=== PATIENT | male | born 1950 | race Caucasian/White ===

== ENCOUNTER 2018-05-19 07:46 | Day surgery (SDC) | payer MEDICARE, OTHER ==
[~2018-05-19 07:46] MED LIST: Brimonidine 0.2% Ophth Soln 5 ML Bottle EYELF SCH; Cefuroxime 10 MG/ML SYRINGE EYERT SCH; Lidocaine 1% PF 2 ML SDV INJECT SCH; Pilocarpine 4% Ophth Soln 15 ML Bot EYERT SCH; Tetracaine HCl/PF 0.5% 4 ML Bottle EYEBOTH SCH; Tropicamide 1% Ophth Soln 3 ML Bottle EYERT SCH
[2018-05-19] MEDS: Polymyxin B/Trimethoprim 10 ML Bottle EYERT SCH ×3 (08:19→10:31)
[2018-05-19] MEDS: Brimonidine 0.2% Ophth Soln 5 ML Bottle EYERT SCH ×2 (08:24→09:15)
[2018-05-19] MEDS: Phenylephrine 2.5% Ophth Soln 2 ML Bot EYERT SCH ×5 (08:30→10:00)
[2018-05-19] MEDS: Tropicamide 1% Ophth Soln 15 ML Bottle EYERT SCH ×4 (08:35→09:36)
--- NOTE | 2018-05-19 08:49 | PCM.PREANE ---
Preanesthetic Assessment - Anesthesia/Transfusion/Family Hx Anesthesia History: Prior Anesthesia Without Reaction Family History of Anesthesia Reaction: No Transfusion History: No Prior Transfusion(s) - Review of Systems General: No Symptoms Pulmonary: No Symptoms Cardiovascular: Other (HTN, increased cholesterol 05/05/[address] depression and hypertensive response followed by cardiolite which showed EF 40% and previous infarct) Gastrointestinal: No Symptoms Neurological: No Symptoms Other: Reports: Thyroid Problems - Physical Assessment NPO Status Date: 05/18/18 NPO Status Time: 19:00 Pulse: 72 O2 Sat by Pulse Oximetry: 95 Respiratory Rate: 16 Blood Pressure: 122/76 Vital Signs: Last Vital Signs Temp 36.2 C 05/19/18 07:55 Pulse 72 05/19/18 07:55 Resp 16 05/19/18 07:55 BP 122/76 05/19/18 07:55 Pulse Ox 95 05/19/18 07:55 Height: 1.73 m Weight: 82.554 kg ASA Class: 3 Mental Status: Alert & Oriented x3 Airway Class: Mallampati = 2 Dentition: Reports: Normal Dentition Thyro-Mental Finger Breadths: 3 Mouth Opening Finger Breadths: 3 ROM/Head Extension: Full Lungs: Clear to Auscultation, Normal Respiratory Effort Cardiovascular: Regular Rate, Regular Rhythm - Allergies Allergies/Adverse Reactions: Allergies Allergy/AdvReac Type Severity Reaction Status Date / Time No Known Allergies Allergy Verified 05/19/18 08:17 - Blood Blood Available: No Product(s) Available: None - Anesthesia Plan Pre-Op Medication Ordered: None Beta Jessica: Carvedilol Med Last Dose Date: 05/19/18 Med Last Dose Time: 07:00 - Acknowledgements Anesthesia Type Planned: MAC Pt an Appropriate Candidate for the Planned Anesthesia: Yes Alternatives and Risks of Anesthesia Discussed w Pt/Guardian: Yes Pt/Guardian Understands and Agrees with Anesthesia Plan: Yes PreAnesthesia Questionnaire - HOME MEDS Home Medications: Home Meds Aspirin [Miki Chewable Aspirin] 81 mg PO DAILY 05/18/18 [History] Carvedilol 25 mg PO BID 05/18/18 [History] Clopidogrel Bisulfate [Clopidogrel] 75 mg PO DAILY 05/18/18 [History] Levothyroxine 25 mcg PO DAILY 05/18/18 [History] Lutein/Minerals/Vit A,C & E [Ocuvite] 1 tab PO DAILY 05/18/18 [History] Ramipril 10 mg PO DAILY 05/18/18 [History] atorvaSTATin Calcium [Lipitor] 40 mg PO DAILY 05/18/18 [History] - CURRENT (IN HOUSE) MEDS Current Meds: Current Medications Brimonidine Tartrate (Alphagan 0.2% Ophth Soln) 0 ml EYERT ASDIRECTED LUCINA Stop: 05/19/18 23:00 Last Admin: 05/19/18 08:24 Dose: 1 drop Cefuroxime Sodium (Zinacef) 0 mg EYERT ASDIRECTED LUCINA Stop: 05/19/18 23:00 Lidocaine HCl (Xylocaine-Mpf 1%) 0 ml INJECT ASDIRECTED LUCINA Stop: 05/19/18 23:00 Phenylephrine HCl (Osbaldo-Synephrine 2.5% Ophth Soln) 0 ml EYERT ASDIRECTED LUCINA Stop: 05/19/18 23:00 Last Admin: 05/19/18 08:42 Dose: 1 drop Pilocarpine HCl (Pilocar 4% Ophth Soln) 0 ml EYERT ASDIRECTED LUCINA Stop: 05/19/18 23:00 Polymyxin/Trimethoprim Sulfate (Polytrim Ophth Soln) 0 ml EYERT ASDIRECTED LUCINA Stop: 05/19/18 23:00 Last Admin: 05/19/18 08:19 Dose: 1 drop Tetracaine HCl (Tetracaine 0.5% Steri-Unit Urszula) 0 ml EYERT ASDIRECTED LUCINA Stop: 05/19/18 23:00 Tropicamide (Mydriacyl 1% Ophth Soln) 0 ml EYERT ASDIRECTED LUCINA Stop: 05/19/18 23:00 Last Admin: 05/19/18 08:35 Dose: 1 drop Discontinued Medications Brimonidine Tartrate (Alphagan 0.2% Ophth Soln) 1 ml EYELF ASDIRECTED LUCINA Tetracaine HCl (Tetracaine 0.5% Steri-Unit Urszula) 1 ml EYEBOTH ASDIRECTED LUCINA Tropicamide (Mydriacyl 1% Ophth Soln) 0 ml EYERT ASDIRECTED LUCINA Stop: 05/19/18 23:00
[2018-05-19] MEDS: Tetracaine HCl/PF 0.5% 4 ML Bottle EYERT SCH ×2 (09:52→10:12)
[2018-05-19] MEDS ORDERED: Lidocaine 1% with EPINEPHrine 1:100,000 20 ML MDV ONE (10:02)
--- NOTE | 2018-05-19 10:32 | PCM48HPAN ---
Post Anesthesia Note - EVALUATION WITHIN 48HRS OF ANESTHETIC Vital Signs in Normal Range: Yes Patient Participated in Evaluation: Yes Respiratory Function Stable: Yes Airway Patent: Yes Cardiovascular Function Stable: Yes Hydration Status Stable: Yes Pain Control Satisfactory: Yes Nausea and Vomiting Control Satisfactory: Yes Mental Status Recovered: Yes Pulse Rate: 72 Resp Rate: 16 Blood Pressure: 122/76
== END 2018-05-19 10:44 | disposition home or self-care (01) ==
LOC: JD.SDS 07:46
PROVIDERS: ATTEND Ophthalmology
DX: H25.813 Combined forms of age-related cataract, bilateral (principal); C44.1222 Squamous cell carcinoma of skin of right lower eyelid, including canthus; H02.822 Cysts of right lower eyelid; I10 Essential (primary) hypertension; E78.00 Pure hypercholesterolemia, unspecified; M19.90 Unspecified osteoarthritis, unspecified site; H35.3131 Nonexudative age-related macular degeneration, bilateral, early dry stage; H16.223 Keratoconjunctivitis sicca, not specified as Sjogren's, bilateral; H16.103 Unspecified superficial keratitis, bilateral; Z87.891 Personal history of nicotine dependence; Z79.82 Long term (current) use of aspirin; Z79.02 Long term (current) use of antithrombotics/antiplatelets; Z79.899 Other long term (current) drug therapy; Z79.890 Hormone replacement therapy
CPT/HCPCS: 11441; 11642; 66984; 88305; 88312; A9270; C1780; J0697; J2001

== ENCOUNTER 2018-06-16 09:22 | Day surgery (SDC) | payer MEDICARE, OTHER ==
[2018-06-16] MEDS: Polymyxin B/Trimethoprim 10 ML Bottle EYELF SCH ×4 (09:50→11:51)
[2018-06-16] MEDS: Brimonidine 0.2% Ophth Soln 5 ML Bottle EYELF SCH ×4 (09:55→11:51)
[2018-06-16] MEDS: Phenylephrine 2.5% Ophth Soln 2 ML Bot EYELF SCH ×6 (10:00→11:32)
[2018-06-16] MEDS: Tropicamide 1% Ophth Soln 15 ML Bottle EYELF SCH ×4 (10:05→10:45)
--- NOTE | 2018-06-16 10:14 | PCM.PREANE ---
Preanesthetic Assessment - Anesthesia/Transfusion/Family Hx Anesthesia History: Prior Anesthesia Without Reaction Family History of Anesthesia Reaction: No Transfusion History: No Prior Transfusion(s) - Review of Systems General: No Symptoms Pulmonary: No Symptoms Cardiovascular: No Symptoms Gastrointestinal: No Symptoms Neurological: No Symptoms Other: Reports: None - Physical Assessment NPO Status Date: 06/15/18 NPO Status Time: 20:00 Pulse: 62 O2 Sat by Pulse Oximetry: 95 Respiratory Rate: 16 Blood Pressure: 124/74 Vital Signs: Last Vital Signs Temp 36.2 C 06/16/18 09:44 Pulse 62 06/16/18 09:44 Resp 16 06/16/18 09:44 BP 124/74 06/16/18 09:44 Pulse Ox 95 06/16/18 09:44 Height: 1.73 m Weight: 82.554 kg ASA Class: 2 Mental Status: Alert & Oriented x3 Airway Class: Mallampati = 1 Dentition: Reports: Normal Dentition Thyro-Mental Finger Breadths: 3 Mouth Opening Finger Breadths: 3 ROM/Head Extension: Full Lungs: Clear to Auscultation, Normal Respiratory Effort Cardiovascular: Regular Rate, Regular Rhythm - Allergies Allergies/Adverse Reactions: Allergies Allergy/AdvReac Type Severity Reaction Status Date / Time No Known Allergies Allergy Verified 06/15/18 14:30 - Anesthesia Plan Beta Jessica: Carvedilol Med Last Dose Date: 06/16/18 Med Last Dose Time: 08:00 - Acknowledgements Anesthesia Type Planned: MAC Pt an Appropriate Candidate for the Planned Anesthesia: Yes Alternatives and Risks of Anesthesia Discussed w Pt/Guardian: Yes Pt/Guardian Understands and Agrees with Anesthesia Plan: Yes PreAnesthesia Questionnaire HEENT History: Reports: Cataract Cardiovascular History: Reports: High Cholesterol, Hypertension, [place] (2006), Stents (x3) Respiratory History: Reports: None Gastrointestinal History: Reports: None Genitourinary History: Reports: None Musculoskeletal History: Reports: None Neurological History: Reports: None Psychiatric History: Reports: None Endocrine/Metabolic History: Reports: Hypothyroidism - Past Surgical History HEENT Surgical History: Reports: Cataract Surgery Cardiovascular Surgical History: Reports: Coronary Artery Stent GI Surgical History: Reports: Colonoscopy Musculoskeletal Surgical History: Reports: Knee Replacement ((B)) - SUBSTANCE USE Smoking Status *Q: Former Smoker - HOME MEDS Home Medications: Home Meds Aspirin [Miki Chewable Aspirin] 81 mg PO DAILY 05/18/18 [History] Carvedilol 25 mg PO BID 05/18/18 [History] Clopidogrel Bisulfate [Clopidogrel] 75 mg PO DAILY 05/18/18 [History] Levothyroxine 25 mcg PO DAILY 05/18/18 [History] Lutein/Minerals/Vit A,C & E [Ocuvite] 1 tab PO DAILY 05/18/18 [History] Ramipril 10 mg PO DAILY 05/18/18 [History] atorvaSTATin Calcium [Lipitor] 40 mg PO DAILY 05/18/18 [History] - CURRENT (IN HOUSE) MEDS Current Meds: Current Medications Brimonidine Tartrate (Alphagan 0.2% Ophth Soln) 0 ml EYELF ASDIRECTED LUCINA Stop: 06/16/18 18:00 Last Admin: 06/16/18 09:55 Dose: 1 drop Cefuroxime Sodium (Zinacef) 0 mg EYELF ASDIRECTED LUCINA Stop: 06/16/18 18:00 Lidocaine HCl (Xylocaine-Mpf 1%) 0 ml INJECT ASDIRECTED LUCINA Stop: 06/16/18 18:00 Phenylephrine HCl (Osbaldo-Synephrine 2.5% Ophth Soln) 0 ml EYELF ASDIRECTED LUCINA Stop: 06/16/18 18:00 Last Admin: 06/16/18 10:00 Dose: 1 drop Pilocarpine HCl (Pilocar 4% Ophth Soln) 0 ml EYELF ASDIRECTED LUCINA Stop: 06/16/18 18:00 Polymyxin/Trimethoprim Sulfate (Polytrim Ophth Soln) 0 ml EYELF ASDIRECTED LUCINA Stop: 06/16/18 18:00 Last Admin: 06/16/18 09:50 Dose: 1 drop Tetracaine HCl (Tetracaine 0.5% Steri-Unit Urszula) 0 ml EYELF ASDIRECTED LUCINA Stop: 06/16/18 18:00 Tropicamide (Mydriacyl 1% Ophth Soln) 0 ml EYELF ASDIRECTED LUCINA Stop: 06/16/18 18:00 Last Admin: 06/16/18 10:05 Dose: 1 drop
[2018-06-16] MEDS: Lidocaine 1% PF 2 ML SDV INJECT SCH ×2 (10:46→11:37)
[2018-06-16] MEDS: Tetracaine HCl/PF 0.5% 4 ML Bottle EYELF SCH ×5 (10:46→11:40)
[2018-06-16] MEDS: Pilocarpine 4% Ophth Soln 15 ML Bot EYELF SCH ×2 (10:47→11:51)
[2018-06-16] MEDS: Cefuroxime 10 MG/ML SYRINGE EYELF SCH ×2 (10:47→11:50)
--- NOTE | 2018-06-16 11:39 | PCM48HPAN ---
Post Anesthesia Note - EVALUATION WITHIN 48HRS OF ANESTHETIC Vital Signs in Normal Range: Yes Patient Participated in Evaluation: Yes Respiratory Function Stable: Yes Airway Patent: Yes Cardiovascular Function Stable: Yes Hydration Status Stable: Yes Pain Control Satisfactory: Yes Nausea and Vomiting Control Satisfactory: Yes Mental Status Recovered: Yes Pulse Rate: 62 Resp Rate: 16 Blood Pressure: 124/74
== END 2018-06-16 12:02 | disposition home or self-care (01) ==
LOC: JD.SDS 09:22
PROVIDERS: ATTEND Ophthalmology
DX: H25.812 Combined forms of age-related cataract, left eye (principal); H35.3131 Nonexudative age-related macular degeneration, bilateral, early dry stage; H16.223 Keratoconjunctivitis sicca, not specified as Sjogren's, bilateral; Z96.1 Presence of intraocular lens; Z87.891 Personal history of nicotine dependence; Z79.82 Long term (current) use of aspirin; Z79.899 Other long term (current) drug therapy
CPT/HCPCS: 66984; A9270; C1780; J0697; J2001